=== PATIENT | male | born 1980 | race Caucasian/White ===

== ENCOUNTER → 2022-10-18 09:22 | Outpatient (CLI) | payer OTHER, SELFPAY ==
--- NOTE | 2022-10-18 09:37 | XR_ITS ---
FINAL REPORT CLINICAL HISTORY: rt posterior hand pain, fell on ice x2 wks ago FINDINGS: Right hand Three views were obtained. There is no acute fracture or dislocation. There is chronic deformity of the 5th metacarpal, likely represents sequela of prior injury. The joint spaces appear normal. No soft tissue abnormality is identified. IMPRESSION: No acute process. Reviewed, Interpreted and Dictated by Kike Russo III, MD Transcribed by Shannan Hanson Authenticated and [facility]
== END ==
PROVIDERS: Visit Provider Orthopaedic Surgery
DX: M79.641 Pain in right hand (principal)
CPT/HCPCS: 73130

== ENCOUNTER 2023-11-07 13:19 | Outpatient (CLI) | payer OTHER, SELFPAY ==
--- NOTE | 2023-11-07 13:26 | XR_ITS ---
FINAL REPORT CLINICAL HISTORY: right knee pain COMPARISON: None FINDINGS: AP, lateral and oblique views of the right knee were obtained. There is no prior exam for comparison. There is no acute osseous abnormality of the right knee. The joint space is preserved. The soft tissues are normal. There is no joint effusion. IMPRESSION: No acute osseous abnormality of the right knee. Reviewed, Interpreted and Dictated by Bryson West MD Transcribed by Haven Moses Authenticated and [facility]
== END 2023-11-07 23:59 ==
LOC: RAD 13:23
PROVIDERS: Visit Provider Orthopaedic Surgery
DX: M25.561 Pain in right knee (principal)
CPT/HCPCS: 73562

== ENCOUNTER 2023-11-22 10:34 | Day surgery (SDC) | payer OTHER, SELFPAY ==
[2023-11-22] VITALS (9 sets, daily range): BP systolic 118–138; BP diastolic 72–95; PULSE 66–83; RESP 14–18; TEMP 36.3–36.7; O2SAT 93–100; BMI 25.8
--- NOTE | 2023-11-22 10:37 | SUR.PREOP ---
PER DR. VIZCARRA, DO NOT NEED TO GET CBC, CMP, CXR OR EKG ON THIS PT PREOP.
[2023-11-22] MEDS: LACTATED RINGERS 1000ML 1,000 ML 25 ML IV (10:45)
--- NOTE | 2023-11-22 13:15 | EXP.ANES.CKL ---
[facility] Disclaimer: The information contained in this section may have been updated after the patient was seen, as this information can be updated by other users. Medical History (Updated 11/22/23 @ 10:49 by Melanie Rodas RN) No significant past medical history Surgical History (Updated 11/22/23 @ 10:49 by Melanie Rodas RN) No significant past surgical history Family History (Updated 11/22/23 @ 10:49 by Melanie Rodas RN) Other No significant family history Social History (Updated 11/22/23 @ 10:49 by Melanie Rodas RN) Smoking Status: Unknown if ever smoked alcohol intake: never substance use type: denies use current occupational status: other Travel in the last 8 weeks: None [facility] Anesthesia Checklist Patient Identification Patient Identification: Arm Band Structural Data Admitted From: Home Planned Operative Procedure/s: Right Knee Arthroscopy Consent for Planned Operative Procedure(s) Verified: Yes Verified Documents: Surgical Consent and History and Physical NPO Status Verified Time NPO: 00:00 Additional verifications Anesthesia Reactions: No Hx Blood Transfusions: No Airway Assessment Mallampati Score:: Class II C-Spine Mobility Assessed: Yes TMJ Mobility Assessed: Yes Dentition: Good Dentition Neurological Assessment Level of Consciousness: Awake and Alert Anesthesia Plan Anesthesia Risk discussed: Yes Anesthesia Plan: Verified ASA Class: II Anesthesia Type: General
[2023-11-22] MEDS: CEFAZOLIN SODIUM 2 GM in 0.9 % SODIUM CHLORIDE 100 ML IV (13:45)
[2023-11-22] MEDS: BUPIVACAINE 0.25% 30ML VIAL 75 MG (13:55)
--- NOTE | 2023-11-22 14:12 | P.OP_ITS ---
Date of procedure: 11/22/23 Pre-op Diagnosis:: Right knee complex tear medial meniscus Post-op Diagnosis:: Same Procedure performed:: Right knee arthroscopy with partial medial meniscectomy Surgeon:: Olman Hodges DO [employer]:: Brandyn Woodward Anesthesia: GETA Estimated blood loss (mL): 0 Operative findings:: See dictation Operative note:: Patient identified preoperatively. Right knee marked with yes my initials. Transported operative suite. Placed upon the operating bed. General anesthesia ministered airway secured. Right lower extremity then prepped and draped normal sterile fashion. Once prepped and draped final operative timeout performed to identify proper patient procedure and extremity. Everyone involved the case agreed. No counter indications to beginning. Did receive preoperative antibiotics. Marking pen was used to kenneth the bony landmarks of the knee and standard portal sites. Esmarch was used to exsanguinate the extremity. Pneumatic tourniquet inflated 300 mmHg. Skin knife was used incise standard anterior lateral portal. Blunt with trocar was placed in patellofemoral joint exchange with a camera. I swept directly into the medial joint line where the anterior medial portal was made. This was done with the help with 18-gauge spinal needle. Probe was then placed in the medial joint line there was a large macerated tear of the posterior horn the medial meniscus using a combination of straight biter and sucker shaver partial medial meniscectomy was performed back to stable rim. I then placed the scope in intercondylar notch where the ACL was seen and intact scope into the lateral joint line with the lateral cartilage was intact lateral meniscus was intact. Scope into the medial lateral gutters and into the patellofemoral joint saw no other loose bodies or pathology. The camera was removed the joint was drained local anesthesia was filtrated the portal sites skin was closed with nylon stitch sterile dressing placed Rancho bandage wrapped from toes to thigh patient waken anesthesia taken recovery in stable condition. Condition: stable Disposition: PACU Complications:: None apparent
--- NOTE | 2023-11-22 14:20 | EXP.ANES.I ---
[facility] Anesthesia Record Part I Anesthesia Record I Intake, IV Amount: 600 Hydration: Adequate Estimated blood loss (mL): 1 Urine output (mL): 0 Blood Products used (#): none Blood Pressure: 120/72 SaO2: 93 Pulse Rate: 72 Airway Patency: Patent Respiratory Rate: 16 Temperature: 97.4 F Patient is:: Drowsy and Stable Stable to PACU at:: 14:15
--- NOTE | 2023-11-22 14:42 | SUR.PHASEI ---
1435 - T/O from Abelardo Woodward CRNA for pt to receive 0.5 mg Dilaudid IVP x 1 now for pain. RB+V.
[2023-11-22] MEDS: HYDROMORPHONE 2MG/ML SYRINGE 0.5 MG IV (15:39)
--- NOTE | 2023-11-23 15:10 | EXP.ANES.II ---
[facility] Anesthesia Record Part II Anesthesia Record Part II Discharge Time: 14:45 Destination: Surgical Day Care (OP Surgery) PACU nurse assessment reviewed?: Yes Patient Condition:: Good Anesthesia Complications:: None Swallowing reflex intact?: Yes Airway Patency: Patent Cyanosis?: No Blood Pressure: 126/93 SaO2: 99 Respiratory Rate: 16 Pulse Rate: 79 Temperature: 97.8 F Mental Status: Alert & Oriented Pain level:: 5 Nausea and/or vomitting:: None Intake, IV Amount: 0 Hydration: Adequate
[2023-11-23 15:11] VITALS: BP 126/93; PULSE 79; RESP 16; TEMP 36.6; O2SAT 99
== END 2023-11-22 15:05 | disposition home or self-care (01) ==
PROVIDERS: PCP Orthopaedic Surgery; Visit Provider Orthopaedic Surgery
PROC: (CPT 29870; principal; 2023-11-22 12:15)
DX: S83.231A Complex tear of medial meniscus, current injury, right knee, initial encounter (principal)
CPT/HCPCS: 29881; 96374; J2405

== ENCOUNTER 2023-12-07 22:17 | Outpatient (CLI) | payer OTHER, SELFPAY ==
[2023-12-07 19:34] LABS: Alanine Aminotransferase 24 U/L (12-78); Albumin Level 4.7 g/dl (3.5-5.0); Albumin/Globulin Ratio 1.7 (1.1-1.8); Alkaline Phosphatase 75 U/L (38-126); Anion Gap 16.8 mEq/L (5-15); Aspartate Amino Transferase 35 U/L (17-59); Bilirubin,Total 0.4 mg/dl (0.2-1.3); Blood Urea Nitrogen 9 mg/dl (9-20); Calcium 9.4 mg/dl (8.4-10.2); Carbon Dioxide 25 mmol/L (22.0-30.0); Chloride 104 mmol/L (98-107); Chol/HDL Ratio 10.7 (1-3.5); Cholesterol 245 mg/dl (140-200); Estimated Glomerular Filt Rate 93 ml/min (>60); GFR (African American) 112 ML/MIN (>60); Globulin 2.8 g/dL (1.3-3.2); Glucose 90 mg/dl (74-100); HDL Cholesterol 23 mg/dl (40-60); Potassium 3.8 mmoL/L (3.5-5.1); Sodium 142 mmol/L (136-145); Total Protein,Serum 7.5 g/dl (6.3-8.2); Triglycerides 305 mg/dl (30-150); Uric Acid 7.5 mg/dl (3.5-8.5); VLDL Cholesterol 61 mg/dL (0-40)
[2023-12-07 19:46] LABS: Direct LDL Cholesterol 140.09 mg/dL (100-129)
[2023-12-07 19:52] LABS: 25-OH Vitamin D, Total 31.4 ng/mL (30-100)
== END 2023-12-07 23:59 ==
LOC: LAB.DROPOF 22:17
PROVIDERS: PCP Family Medicine; Visit Provider Family Medicine
DX: M10.9 Gout, unspecified (principal); E66.9 Obesity, unspecified; Z68.34 Body mass index [BMI] 34.0-34.9, adult; Z79.899 Other long term (current) drug therapy
CPT/HCPCS: 80053; 80061; 82306; 84443; 84550

== ENCOUNTER 2024-06-05 11:36 | Outpatient (CLI) | payer OTHER, SELFPAY ==
[2024-06-05 18:45] LABS: Basophils % 0.6 % (0.1-2.0); Eosinophils # 0.1 K/mm3 (0.0-0.4); Eosinophils % 0.8 % (0.1-12.0); Lymphocytes # 1.5 K/mm3 (0.7-4.5); Lymphocytes % 24.9 % (10-50); Mean Corpuscular HGB Conc 31.4 g/dL (31.8-35.4); Mean Corpuscular Hemoglobin 29.7 pg (27.0-31.2); Mean Corpuscular Volume 94.7 fl (80-94); Mean Platelet Volume 8.5 fl (7.4-10.4); Monocytes # 0.5 K/mm3 (0.1-1.0); Monocytes % 8.4 % (1.7-9.3); Neutrophils # 3.8 K/mm3 (1.8-7.8); Neutrophils % 65.4 % (37.0-80.0); Platelet Count 304 K/mm3 (142-424); Red Blood Count 5.07 M/mm3 (4.60-6.20); Red Cell Distribution Width 14.2 % (11.5-17.5); White Blood Count 5.8 K/mm3 (4.8-10.8)
[2024-06-05 19:14] LABS: Alanine Aminotransferase 38 U/L (12-78); Albumin Level 4.5 g/dl (3.5-5.0); Albumin/Globulin Ratio 1.4 (1.1-1.8); Alkaline Phosphatase 63 U/L (38-126); Anion Gap 12.9 mEq/L (5-15); Aspartate Amino Transferase 34 U/L (17-59); Bilirubin,Total 0.5 mg/dl (0.2-1.3); Blood Urea Nitrogen 13 mg/dl (9-20); Calcium 9.7 mg/dl (8.4-10.2); Carbon Dioxide 23 mmol/L (22.0-30.0); Chloride 109 mmol/L (98-107); Chol/HDL Ratio 8.3 (1-3.5); Cholesterol 267 mg/dl (140-200); Estimated Glomerular Filt Rate 93 ml/min (>60); GFR (African American) 112 ML/MIN (>60); Globulin 3.3 g/dL (1.3-3.2); Glucose 126 mg/dl (74-100); HDL Cholesterol 32 mg/dl (40-60); Potassium 3.9 mmoL/L (3.5-5.1); Sodium 141 mmol/L (136-145); Total Protein,Serum 7.8 g/dl (6.3-8.2); Triglycerides 357 mg/dl (30-150); VLDL Cholesterol 71 mg/dL (0-40)
[2024-06-05 20:07] LABS: Direct LDL Cholesterol 154.65 mg/dL (100-129)
[2024-06-05 20:08] LABS: Thyroid Stimulating Hormone 3.63 uIU/mL (0.465-4.68)
[2024-06-05 20:45] LABS: 25-OH Vitamin D, Total 37.1 ng/mL (30-100)
[2024-06-06 10:43] LABS: Hemoglobin A1C 5.9 % (4.0-6.0)
== END 2024-06-05 23:59 | disposition home or self-care (01) ==
LOC: LAB.DROPOF 06-06 11:37
PROVIDERS: PCP Family Medicine; Visit Provider Family Medicine
DX: F31.81 Bipolar II disorder (principal); F32.9 Major depressive disorder, single episode, unspecified; Z00.00 Encounter for general adult medical examination without abnormal findings
CPT/HCPCS: 80050; 80053; 80061; 82306; 83036; 84443; 85025